=== PATIENT | female | born 1945 | race Caucasian/White ===

== ENCOUNTER 2021-11-16 08:12 | Emergency (ER) | payer MEDICARE, OTHER, SELFPAY ==
[2021-11-16] VITALS (9 sets, daily range): BP systolic 166–189; BP diastolic 72–91; PULSE 56–78; RESP 14–26; TEMP 36.7; O2SAT 94–99; BMI 26.6
--- NOTE | 2021-11-16 08:46 | DI.RAD.S_ITS ---
PROCEDURE: XR CHEST 1V INDICATIONS: CHEST PAIN TECHNIQUE: One view of the chest was acquired. COMPARISON: None. FINDINGS: Surgical changes and devices: None. Lungs and pleura: Lungs are clear. No pleural effusions or pneumothorax. Mediastinum: Mediastinal contours appear normal. Heart size is enlarged. Bones and chest wall: No suspicious bony lesions. Overlying soft tissues appear unremarkable. IMPRESSION: No acute pulmonary process. Dictated by: Trish Aalrcon M.D. on 11/16/2021 at 9:25 Approved by: Trish Alarcon M.D. on 11/16/2021 at 9:26
--- NOTE | 2021-11-16 09:00 | ED_ITS ---
HPI - Chest Pain General Chief Complaint: Chest Pain Stated Complaint: afib last night, history of blood clots Time Seen by Provider: 11/16/21 08:53 Source: patient Mode of arrival: Ambulatory Limitations: no limitations History of Present Illness HPI narrative: Patient is a 76-year-old female. Has had a history of a right lower extremity DVT that occurred approximately 10 years ago. Approximately 1 year ago she had blood clots in her lungs. She states the blood clot in her lungs were attributed to estrogen use. She was on anticoagulation for short period time but is not currently on any anticoagulation except for baby aspirin. Also has a history of hypertension. She states that last night she felt like her heart was beating very who regular. She does not have any official diagnosis of atrial fibrillation. She was also having some left shoulder discomfort at the time. The irregular heart rhythm has resolved however she continues to have some shoulder discomfort. I 1 point she states that it radiated down into the left side of her chest and down her left arm. There is no shortness of breath. Her current discomfort is much improved from last night but she states she is still ?sore ?it is somewhat more tender to palpation over the area. She did not take baby aspirin this morning. Related Data Allergies Allergy/AdvReac Type Severity Reaction Status Date / Time shellfish derived Allergy Verified 11/16/21 08:41 oxycodone AdvReac Verified 11/16/21 08:41 Review of Systems Constitutional Constitutional: Denies chills, Denies fever(s) and Denies headache(s) Eyes Eyes: Reports system reviewed and no additional complaints, except as documented ENT Ears, Nose, Mouth, and Throat: Denies headache(s) Cardiovascular Cardiovascular: Reports as per HPI and Reports system reviewed and no additional complaints, except as documented Respiratory Respiratory: Reports as per HPI and Reports system reviewed and no additional complaints, except as documented Gastrointestinal Gastrointestinal: Reports system reviewed and no additional complaints, except as documented Musculoskeletal Musculoskeletal: Reports system reviewed and no additional complaints, except as documented Integumentary/Breasts Skin/Breast: Reports system reviewed and no additional complaints, except as documented Neurologic Neurologic: Denies headache(s) Hematologic/Lymphatic On Anticoagulants: No Patient History Medical History DVT (deep venous thrombosis) Hypertension Pulmonary embolism Social History Smoking Status: Never smoker Smoking Status: Never smoker Substance Use Type: does not use Exam Initial Vital Signs Initial Vital Signs: Vital Signs Pulse Rate 61 11/16/21 08:36 Respiratory Rate 15 11/16/21 08:36 Pulse Oximetry 97 11/16/21 08:36 HENTX Head: normal to inspection and normocephalic Resp Effort & Inspection: normal respiratory effort Auscultation: clear to auscultation bilaterally Cardio Rate: regular rate Rhythm: regular rhythm Pulses: radial pulses present on the right and on the left GI Inspection: normal to inspection Skin General: no rashes or lesions noted Neuro General: patient alert, patient awake and moves all extremities Extrem Other: Patient does have discomfort with palpation over the posterior left shoulder. Psych Appearance: grossly normal Course Orders Ordered: ED Orders 11/16/21 08:35 Complete Blood Count AUTO DIFF Stat Comprehensive Metabolic Panel Stat D Dimer Stat Lipase Stat Troponin & CK Cardiac Panel Stat 11/16/21 08:46 XR chest 1V Stat EKG-12 Lead Stat 11/16/21 10:15 Troponin I Stat Sodium Chloride (Normal Saline 0.9%) 1,000 mls @ 150 mls/hr IV CONT BENJAMIN Last Admin: 11/16/21 09:02 Dose: Not Given Documented by: CARLITO Nitroglycerin (Nitroglycerin 0.4 Mg Sl Tab) 0.4 mg SL [id number] PRN PRN Reason: Chest Pain Discontinued Medications Aspirin (Aspirin 81 Mg Chew Tab) 324 mg PO NOW ONE Stop: 11/16/21 08:47 Last Admin: 11/16/21 09:02 Dose: 324 mg Documented by: CARLITO Vital Signs Vital signs: Vital Signs - 8 hr 11/16/21 08:36 11/16/21 08:41 11/16/21 09:00 Temperature 98.0 F Pulse Rate 61 78 65 Respiratory Rate 15 Blood Pressure 179/79 H 175/81 H Pulse Oximetry 97 99 97 11/16/21 09:30 11/16/21 10:00 Temperature Pulse Rate 56 L 56 L Respiratory Rate 14 14 Blood Pressure 166/72 H 179/75 H Pulse Oximetry 94 97 MDM - Chest Pain Lab Data Result diagrams: 11/16/21 08:35 11/16/21 08:35 Labs: Lab Results 11/16/21 11/16/21 11/16/21 Range/Units 08:35 08:35 08:35 WBC 4.5 (4.5-11.0) X10^3/uL RBC 4.82 (4.0-5.2) X10^6/uL Hgb 13.4 (12.0-16.0) g/dL Hct 40.5 (36-46) % MCV 84.0 (80-100) fL MCH 27.9 (26-34) PG MCHC 33.2 (30-36) % RDW 13.4 (11.6-14.8) % Plt Count 253 (150-400) X10^3/uL Neut % (Auto) 58.4 (50-75) % Lymph % (Auto) 31.1 (25-40) % [place] % (Auto) 8.0 (3-14) % Eos % (Auto) 1.7 L (2-4) % Baso % (Auto) 0.8 (0-2) % Neut # (Auto) 2600 (1804-7708) /uL Lymph # (Auto) 1400 (0658-2764) /uL [place] # (Auto) 400 (0-900) /uL Eos # (Auto) 100 (0-450) /uL Baso # (Auto) 0 (0-100) /uL D-Dimer 226 (<230) ng/mL Sodium 138 (137-145) mmol/L Potassium 4.1 (3.4-5.1) mmol/L Chloride 105 (98-107) mmol/L Carbon Dioxide 27 (22-32) mmol/L BUN 17 (7-17) mg/dL Creatinine 0.72 (0.52-1.04) mg/dL Estimated GFR > 60 (>60) mL/min BUN/Creatinine Ratio 23.6 H (6-22) Glucose 90 (80-110) mg/dL Calcium 10.2 (8.4-10.2) mg/dL Total Bilirubin 0.6 (0.2-1.3) mg/dL AST 41 H (14-36) IU/L ALT 24 (<35) IU/L Alkaline Phosphatase 60 (38-126) U/L Total Creatine Kinase 86 (30-135) U/L CK-MB (CK-2) TNP CK-MB (CK-2) Rel Index TNP Troponin I < 0.012 (0.01-0.034) ng/mL Total Protein 7.4 (6.3-8.2) g/dL Albumin 4.4 (3.5-5.0) g/dL Globulin 3.0 (1.7-4.1) g/dL Albumin/Globulin Ratio 1.5 (1.0-2.8) Lipase 138 (23-300) U/L 11/16/21 Range/Units 10:15 WBC (4.5-11.0) X10^3/uL RBC (4.0-5.2) X10^6/uL Hgb (12.0-16.0) g/dL Hct (36-46) % MCV (80-100) fL MCH (26-34) PG MCHC (30-36) % RDW (11.6-14.8) % Plt Count (150-400) X10^3/uL Neut % (Auto) (50-75) % Lymph % (Auto) (25-40) % [place] % (Auto) (3-14) % Eos % (Auto) (2-4) % Baso % (Auto) (0-2) % Neut # (Auto) (8887-5516) /uL Lymph # (Auto) (4324-5878) /uL [place] # (Auto) (0-900) /uL Eos # (Auto) (0-450) /uL Baso # (Auto) (0-100) /uL D-Dimer (<230) ng/mL Sodium (137-145) mmol/L Potassium (3.4-5.1) mmol/L Chloride (98-107) mmol/L Carbon Dioxide (22-32) mmol/L BUN (7-17) mg/dL Creatinine (0.52-1.04) mg/dL Estimated GFR (>60) mL/min BUN/Creatinine Ratio (6-22) Glucose (80-110) mg/dL Calcium (8.4-10.2) mg/dL Total Bilirubin (0.2-1.3) mg/dL AST (14-36) IU/L ALT (<35) IU/L Alkaline Phosphatase (38-126) U/L Total Creatine Kinase (30-135) U/L CK-MB (CK-2) CK-MB (CK-2) Rel Index Troponin I < 0.012 (0.01-0.034) ng/mL Total Protein (6.3-8.2) g/dL Albumin (3.5-5.0) g/dL Globulin (1.7-4.1) g/dL Albumin/Globulin Ratio (1.0-2.8) Lipase (23-300) U/L Imaging Data Chest x-ray: Radiologist's Impression: [address] [address] XRay Report Signed Patient: Donna Forrest MR#: [id number] : 1945 Acct:[id number] Age/Sex: 76 / F Date of Service: 11/16/21 Loc: ED Accession Number: [id number] ?? Procedure: XR chest 1V Ordering Provider: Shiv Mckeon D.O. PROCEDURE:? XR CHEST 1V ? INDICATIONS:? CHEST PAIN ? TECHNIQUE:? One view of the chest was acquired.? ? COMPARISON:? None. ? FINDINGS:? ? Surgical changes and devices:? None.? ? Lungs and pleura:? Lungs are clear.? No pleural effusions or pneumothorax.? ? Mediastinum:? Mediastinal contours appear normal.? Heart size is enlarged. ? Bones and chest wall:? No suspicious bony lesions.? Overlying soft tissues appear unremarkable.? ? IMPRESSION:? No acute pulmonary process. ? ? Dictated by: Trish Alarcon M.D. on 11/16/2021 at 9:25 ? ? Approved by: Trish Alarcon M.D. on 11/16/2021 at 9:26 ECG Data Attestation: I personally reviewed and interpreted this ECG as follows: Prior ECG tracings: available for review Interpretation: Sinus bradycardia Ventricular rate of 59 Normal QRS Normal QTC No ST T wave changes MDM Narrative Medical decision making narrative: Troponin is negative x2. Not AFib on the EKG. She does have reproducible symptoms in her left shoulder which makes me less suspicious about ACS. Patient has had a blood clot in the past however her D-dimer is negative again makes pulmonary embolism unlikely. She is not on anticoagulation. She has full range of motion of her left shoulder neck I feel that fracture dislocation is unlikely. I do suspect musculoskeletal. I discussed this with her. We dis cussed return precautions and follow-up instructions. She expressed understanding and agreement. Discharge Plan Departure Patient Disposition: Home Clinical Impression: Left shoulder pain Instructions: DI for Shoulder Pain Activity Restrictions/Additional Instructions: Your workup today with regard to your heart and lungs and potential blood clots are all very reassuring. Given the fact that the discomfort is reproducible I do suspect a musculoskeletal cause of your for symptoms which means that things should improve over the next couple days. Contact your primary doctor for a follow-up. Return to the emergency department for any new or worsening symptoms. Referrals: Miscellaneous,[facility] [Primary Care Provider] -
[2021-11-16 09:01] LABS: Add Manual Diff / Slide Review NO; Basophils Absolute Auto 0 /uL (0-100); Basophils Percent Auto 0.8 % (0-2); Eosinophils Absolute Auto 100 /uL (0-450); Eosinophils Percent Auto 1.7 % (2-4); Hematocrit 40.5 % (36-46); Hemoglobin 13.4 g/dL (12.0-16.0); Lymphocytes Absolute Auto 1400 /uL (1100-4500); Lymphocytes Percent Auto 31.1 % (25-40); Mean Corpuscular HGB Conc 33.2 % (30-36); Mean Corpuscular Hemoglobin 27.9 PG (26-34); Monocytes Absolute Auto 400 /uL (0-900); Neutrophils Absolute Auto 2600 /uL (1500-7000); Neutrophils Percent Auto 58.4 % (50-75); Platelet Count 253 X10^3/uL (150-400); Red Blood Cell Count 4.82 X10^6/uL (4.0-5.2); Red Cell Distribution Width 13.4 % (11.6-14.8); White Blood Cell Count 4.5 X10^3/uL (4.5-11.0)
[2021-11-16] MEDS: ASPIRIN 81 MG CHEW TAB 324 MG PO (09:02)
[2021-11-16 09:05] LABS: D Dimer 226 ng/mL (<230)
[2021-11-16 09:07] LABS: Alanine Aminotransferase 24 IU/L (<35); Albumin 4.4 g/dL (3.5-5.0); Albumin Globulin Ratio 1.5 (1.0-2.8); Alkaline Phosphatase 60 U/L (38-126); Aspartate Aminotransferase 41 IU/L (14-36); BUN Creatinine Ratio 23.6 (6-22); Bilirubin Total 0.6 mg/dL (0.2-1.3); Blood Urea Nitrogen 17 mg/dL (7-17); Calcium 10.2 mg/dL (8.4-10.2); Carbon Dioxide 27 mmol/L (22-32); Chloride 105 mmol/L (98-107); Creatine Kinase 86 U/L (30-135); Estimated Glomerular Filt Rate > 60 mL/min (>60); Glucose 90 mg/dL (80-110); HEMOLYSIS < 15 (0-50); Lipase 138 U/L (23-300); Potassium 4.1 mmol/L (3.4-5.1); Sodium 138 mmol/L (137-145); Total Protein 7.4 g/dL (6.3-8.2)
[2021-11-16 09:18] LABS: Troponin I < 0.012 ng/mL (0.01-0.034)
[2021-11-16 11:12] LABS: Troponin I < 0.012 ng/mL (0.01-0.034)
--- NOTE | 2021-11-16 11:33 | PC.NURSE ---
Pt will take todays BP medications when she leaves. Shes has not taken them today.
== END 2021-11-16 11:36 | disposition home or self-care (01) ==
PROVIDERS: Emergency Provider Emergency Medicine
DX: M25.512 Pain in left shoulder (principal); R07.9 Chest pain, unspecified
CPT/HCPCS: 36415; 71045; 80053; 82550; 83690; 84484; 85025; 85379; 93005; 99284